=== PATIENT | female | born 1945 | race Caucasian/White ===

== ENCOUNTER 2018-12-17 10:30 | Outpatient (CLI) | payer MEDICARE | END 2018-12-17 10:31 | disposition home or self-care (01) | LOC: C.USIC 10:31 ==

== ENCOUNTER → 2018-12-24 | Outpatient (CLI) | payer MEDICARE | END | disposition home or self-care (01) | LOC: C.RADH 08:37 | DX: E04.1 Nontoxic single thyroid nodule (principal); K21.9 Gastro-esophageal reflux disease without esophagitis ==